=== PATIENT | female | born 1975 | race Two or more races ===

== ENCOUNTER 2016-07-10 19:37 | Emergency (ER) | payer MEDICAID ==
[2016-07-10] MEDS ORDERED: Albuterol Nebulizer 2.5mg/3mL HHN ONE ×2 (20:05→20:06)
[2016-07-10] MEDS ORDERED: Dexamethasone Sodium Phos 4 mg/mL Vial IVP STA (20:09)
[2016-07-10] MEDS ORDERED: Codeine/Promethazine Susp 5 mL UDC PO STA (20:09)
[2016-07-10] MEDS ORDERED: Dexamethasone Sodium Phos 4 mg/mL Vial IM STA (20:13)
--- NOTE | 2016-07-10 20:13 | ED Physician Chart ---
Chief Complaint/HPI - Patient Information Date Seen:: 07/10/16 Time Seen:: 19:40 Chief Complaint:: shortness of breath History of Present Illness:: 40-year-old female with acute, worsening, constant, moderate, shortness of breath that started yesterday. Has associated throat pain that is acute, worsening, moderate, aching, nonradiating, 8 out of 10, throat pain 2 days. Also has associated cough. Allergies:: Allergies Allergy/AdvReac Type Severity Reaction Status Date / Time No Known Allergies Allergy Verified 07/10/16 19:54 Vitals:: Vital Signs - 8 hr 07/10/16 19:40 Temp 99.0 F HR 111 RR 24 BP 147/85 O2 Sat % 99 Review:: Nurse's Note Reviewed Review of Systems - Review of Systems Other: Complete system review otherwise unremarkable except as noted in HPI. Past Medical History - Past Medical History Past Medical History: HTN Family History: None Social History: Non Smoker, No Alcohol, No Drug Use, Employed Surgical History: None Psychiatricy History: None Medication: Reviewed Family Medical History - Family Member Mother History Unknown: Yes Ethnicity: Hx Family Cancer: No Hx Family Coronary Artery Disease: No Hx Family Hypertension: Yes Physical Exam - Physical Examination Other:: INITIAL VITAL SIGNS: Reviewed by me GENERAL: Alert and interactive. No acute distress but with nonproductive cough. HEAD: Head is normocephalic and atraumatic EYES: EOMI. . No scleral icterus. No conjunctival injection ENT: Tonsils are +1 edematous slight exudate. NECK: Supple. Positive cervical adenopathy bilaterally. Full range of motion RESPIRATORY: No tachypnea. Shallow breaths, slight wheeze on expiration. Cough with inspiration. CV: Regular rate and rhythm. No murmurs, rubs, or gallops ABDOMEN: Soft, non-distended, non-tender. No guarding. No rebound. No masses. EXTREMITIES: No deformity. No cyanosis. No edema. SKIN: Warm and dry. No obvious rashes. NEUROLOGIC: Alert and oriented. Face is symmetric. Speech is normal. Moves all extremities equally. Motor and sensory distally intact. ED Septic Shock - . Is Septic Shock (SBP<90, OR Lactate>4 mmol\L) present?: No - <6hrs of presentation: Vital Signs: Vital Signs - 8 hr 07/10/16 19:40 Temp 99.0 F HR 111 RR 24 BP 147/85 O2 Sat % 99 Reassessment (Disposition) - Reassessment Reassessment:: Patient has tonsillitis/pharyngitis. She also has acute bronchitis. Received albuterol breathing treatment. Also received intramuscular Toradol intramuscular Decadron. Patient's symptoms greatly improved. Also provided antitussive here in the ER. Provided prescriptions for Z-Jordi, prednisone and ibuprofen. Follow up with PCP 1-2 days. Gave return to ER precautions. Patient understands and agrees with the plan. Reassessment Condition:: Improved - Diagnosis Diagnosis:: Acute tonsillitis Acute bronchitis Hypertension - Aftercare/Follow up Instructions Aftercare/Follow-Up Instructions:: Counseled pt regarding lab results/diagnosis & need follow up, Refer to Discharge Instructions Medication Prescribed:: Azithromycin (Z-Jordi) Ibuprofen Prednisone - Patient Disposition Discharge/Transfer:: Home Time:: 20:22 Condition at Disposition:: Improved ED Discharge Plan - Patient Disposition Admit/Discharge/Transfer: PT DISCHARGED HOME Condition at Disposition: Improved Instructions: Viral and Bacterial Pharyngitis, Bronchitis, [id number] Additional Instructions: FILL YOUR PRESCRIPTIONS AND TAKE THEM DIRECTED. FOLLOW UP WITH YOUR REGULAR DOCTOR OR AT YOUR LOCAL MEDICAL CLINIC IF NOT FEELING BETTER.
[2016-07-10] MEDS ORDERED: Dexamethasone Sodium Phos 10 mg/mL PF Vial ONE (20:15)
[2016-07-10] MEDS ORDERED: Codeine/Promethazine Susp 5 mL UDC ONE (20:16)
[2016-07-10] MEDS ORDERED: Albuterol Nebulizer 2.5mg/3mL HHN STA (21:20)
== END 2016-07-10 21:00 | disposition home or self-care (01) ==
LOC: ER 19:37
DX: J20.9 Acute bronchitis, unspecified (principal); J03.90 Acute tonsillitis, unspecified; I10 Essential (primary) hypertension
CPT/HCPCS: 99284; 96372 ×2; 94640; J1885; J7613; Z7502